=== PATIENT | female | born 1950 | race Caucasian/White ===

== ENCOUNTER → 2018-01-10 | Outpatient (CLI) | payer MEDICARE, BC ==
[~2018-01-10] MED LIST: GADOBUTROL 7.5 MMOL/7.5 ML PFS ONE
== END | disposition home or self-care (01) ==
LOC: CFH 13:36
PROVIDERS: ATTEND Otolaryngology Facial Plastic Surgery
DX: J34.1 Cyst and mucocele of nose and nasal sinus (principal); H90.3 Sensorineural hearing loss, bilateral
CPT/HCPCS: 70553; A9585